=== PATIENT | female | born 1960 | race Caucasian/White ===

== ENCOUNTER → 2017-04-08 | Outpatient (CLI) | payer SELFPAY ==
--- NOTE | 2017-04-09 08:18 | MRI ---
EXAM DESCRIPTION: Cervical Spine CLINICAL HISTORY: NECK PAIN COMPARISON: None Available. TECHNIQUE: MRI of the cervical spine is performed according to our usual protocol. FINDINGS: There is good alignment of the cervical spine. There is no vertebral abnormality. Craniocervical junction and the cord are unremarkable. C2-3: the disc is well hydrated. There is no loss of height. There is no bulging. The facets are unremarkable with no significant hypertrophy. There is no stenosis or impingement. C3-4: Early disc desiccation and narrowing. Minor disc bulging. Moderately severe facet arthropathy on the right. No stenosis or impingement. C4-5: Early desiccation of the disc with minimal narrowing and minor annular bulging. Moderately severe right facet arthropathy with hypertrophy. No stenosis or impingement. C5-6: Disc is desiccated with mild narrowing minimal annular bulging. Moderate right facet arthropathy with hypertrophy. No stenosis or impingement. C6-7: Marked narrowing and desiccation of the discs. Broad 2 mm disc osteophyte complex. Mild facet arthropathy on both sides. No stenosis or impingement. C7-T1: the disc is well hydrated. There is no loss of height. There is no bulging. The facets are unremarkable with no significant hypertrophy. There is no stenosis or impingement. IMPRESSION: Multilevel cervical spondylosis in the mid cervical spine with no stenosis or impingement observed. Electronically signed by: Matt Sawant MD 04/09/2017 8:16 AM CDT
== END | disposition home or self-care (01) ==
LOC: MRI 13:48
PROVIDERS: ATTEND Nurse Practitioner Family
DX: M47.892 Other spondylosis, cervical region (principal)

== ENCOUNTER → 2017-07-21 | Outpatient (CLI) | payer SELFPAY | END | disposition home or self-care (01) | LOC: LAB.O 14:55 | PROVIDERS: ATTEND Nurse Practitioner Family | DX: R29.898 Other symptoms and signs involving the musculoskeletal system (principal) ==

== ENCOUNTER → 2019-05-30 | Outpatient (CLI) | payer OTHER ==
--- NOTE | 2019-05-31 14:53 | US ---
EXAM DESCRIPTION: Pelvic,Non-OB: Ultrasound. CLINICAL HISTORY: 59 years Female OTHER SPECIFIED IRREGULAR MENSTRUATION COMPARISON: None. TECHNIQUE: Endovaginal scanning. Shelley-scale and Doppler modes. FINDINGS: Uterus 5.9 x 4.8 x 3.8 cm. Estimated volume. Endometrial thickness 3.8 mm. The myometrium appears heterogeneous. 2.9 x 2.6 x 2.2 cm heterogeneous isoechoic mass. Abutting the endometrium. The uterus is retroverted. Cervix contains a 4 x 4 x 3 mm cyst. Cul-de-sac contains no fluid. Right ovary 2.5 x 2.0 x 1.0 cm. Normal color Doppler vascularity. No cysts. No adnexal mass or free fluid. Left ovary not seen in the left adnexa. No adnexal mass or free fluid. IMPRESSION: 1. Retroverted uterus small with no endometrial thickening or fluid. 2.9 cm fibroid abutting the endometrium. Nabothian cysts in the cervix. No fluid in the cul-de-sac. 2. Small right ovary with normal color vascularity. Left ovary not seen in the left adnexa. No adnexal fluid. Electronically signed by: James Morillo MD 05/31/2019 2:51 PM CDT
== END ==
LOC: US 14:10
PROVIDERS: ATTEND Nurse Practitioner Family
DX: N92.5 Other specified irregular menstruation (principal); N85.4 Malposition of uterus; D25.9 Leiomyoma of uterus, unspecified; N88.8 Other specified noninflammatory disorders of cervix uteri

== ENCOUNTER → 2019-11-27 | Outpatient (CLI) | payer BC | DX: R07.9 Chest pain, unspecified (principal) ==